=== PATIENT | female | born 1980 | race Caucasian/White ===

== ENCOUNTER → 2020-09-15 | Day surgery (SDC) | payer OTHER ==
[~2020-09-15] VITALS: Ht 162.6 cm; Wt 108.9 kg
[~2020-09-15] MED LIST: AVAPRO300 MG PO; COLESTID 1GM TAB1 GM PO; CYMBALTA 30MG C30 MG PO; FLEXERIL5 MG PO; HCTZ25 MG PO; HYDROCODON-ACE1 EAC2 PO; LOVAZA1 GM PO; OMEPRAZOLE40 MG PO; ONDANSETRON ODT4 MG PO; SINGULAIR10 MG PO; VENTOLIN HFA IN18 GM INH; VITAMIN D3125 MC2 PO; ZYRTEC10 M3 PO
[2020-09-15 08:53] LABS: HCG (URINE) SCREEN NEGATIVE (NEGATIVE)
[2020-09-15 09:54] LABS: HGB 13.3 g/dl (12.5-16.0); MCH 30.1 pg (25.0-31.0); MCHC 34.1 g/dL (32.0-36.0); MCV 88.2 fL (78.0-100.0); RBC 4.42 M/uL (4.20-5.40); RDW 12.1 % (11.5-14.0)
== END | disposition home or self-care (01) ==
LOC: FAS 08:31
PROVIDERS: Surgery
DX: K29.50 Unspecified chronic gastritis without bleeding (principal); G89.29 Other chronic pain; N30.10 Interstitial cystitis (chronic) without hematuria; F41.8 Other specified anxiety disorders; I10 Essential (primary) hypertension; M79.7 Fibromyalgia; N91.5 Oligomenorrhea, unspecified; Z88.0 Allergy status to penicillin; Z90.49 Acquired absence of other specified parts of digestive tract; Z98.51 Tubal ligation status
CPT/HCPCS: 36415; 84703; J2250; J2704; J7120